=== PATIENT | male | born 1945 | race Caucasian/White ===

== ENCOUNTER 2022-12-12 12:14 | Emergency (ER) | payer BC ==
[~2022-12-12] VITALS: Ht 182.9 cm; Wt 96.8 kg
[2022-12-12 12:22] VITALS: TEMP 98.1
--- NOTE | 2022-12-12 12:39 | NUR ---
PT BACK FROM CT, REPORT TO KEYLA DENSON RN
[2022-12-12 12:50] LABS: APTT 31 SECONDS (22-32); INR 1.2 INR; PROTHROMBIN TIME 12.4 SECONDS (9.0-12.0)
[2022-12-12 12:56] LABS: ALANINE AMINOTRANSFERASE 15 U/L (12-78); ALBUMIN 3.7 G/DL (3.4-5.0); ALKALINE PHOSPHATASE 59 IU/L (46-116); ANION GAP 13 (8-16); ASPARTATE AMINO TRANSFERASE 17 U/L (10-37); BILIRUBIN,TOTAL 0.4 MG/DL (0.1-1.0); BLOOD UREA NITROGEN 26 MG/DL (7-18); BUN/CREATININE RATIO 21.5 (10.0-20.0); CALCIUM 9.1 MG/DL (8.5-10.1); CHLORIDE 106 MMOL/L (99-107); CREATININE 1.21 MG/DL (0.60-1.10); GLUCOSE 218 MG/DL (70-104); POTASSIUM 4.2 MMOL/L (3.5-5.1); SODIUM 139 MMOL/L (135-145); TOTAL PROTEIN 7.4 G/DL (6.4-8.2); eCRCL 55 ML/MIN; eGFR 58 ML/MIN
[2022-12-12 13:02] LABS: BASOPHILS % (AUTO) 0.4 % (0-1); EOSINOPHILS # (AUTO) 0.1 X10'3 (0-0.9); HEMATOCRIT 41.4 % (42.0-52.0); HEMOGLOBIN 13.7 g/dl (14.0-17.9); LYMPHOCYTES # (AUTO) 0.8 X10'3 (1.1-4.8); MEAN CORPUSCULAR HEMOGLOBIN 31.4 PG (27.0-31.0); MEAN CORPUSCULAR HGB CONC 33.1 g/dL (33.0-36.5); MEAN CORPUSCULAR VOLUME 94.9 FL (78-98); MEAN PLATELET VOLUME 6.8 FL (7.4-10.4); MONOCYTES # (AUTO) 0.6 X10'3 (0-0.9); MONOCYTES % (AUTO) 7.2 % (2-12); NEUTROPHILS # (AUTO) 6.5 X10'3 (1.8-7.7); NEUTROPHILS % (AUTO) 81.4 % (42-75); PLATELET COUNT 246 X10'3 (140-440); RED BLOOD COUNT 4.37 X10'6 (4.70-6.10); RED CELL DISTRIBUTION WIDTH 14.3 % (11.5-14.5); WHITE BLOOD COUNT 7.9 X10'3 (4.5-11.0)
[2022-12-12] MEDS ORDERED: NORMAL SALINE IV ONE ×2 (13:20→13:47)
[2022-12-12] MEDS ORDERED: DESMOPRESSIN IV ONE ×2 (13:20→13:47)
[2022-12-12] MEDS ORDERED: iohexol 350MG/ML 100ml bottle IV ONE (13:26)
[2022-12-12] MEDS ORDERED: levetiracetam inj 1,000 MG in normal saline 100ml IV soln 100 ML IV SCH (14:14)
[2022-12-12 14:23] VITALS: BP 114/65; PULSE 70; RESP 17; O2SAT 96
--- NOTE | 2022-12-12 14:49 | NUR ---
AT THE TIME THE MEDS WERE DELIVERED BY PHARMACY DONA ARRIVED AND WOULD NOT BE ABLE TO XFER WITH MEDS RUNNING, PROVIDER WAS MADE AWARE AND OK'D THE NON ADMIN OF MEDS
--- NOTE | 2022-12-12 14:50 | NUR ---
GAVE REPORT TO DEVON CASTILLO AT [facility], SBAR WAS CONDUCTED.
== END 2022-12-12 15:01 ==
LOC: ER 12:14
DX: I61.9 Nontraumatic intracerebral hemorrhage, unspecified (principal)
CPT/HCPCS: 36415; 70450; 70496; 70498; 71045; 80053; 82948; 84484; 85025; 85610; 85730; 86885; 86900; 86901; 93005; 99291; J3490; Q9967